=== PATIENT | female | born 1950 | race Caucasian/White ===

== ENCOUNTER → 2024-02-17 07:42 | Outpatient (REF) | payer OTHER, SELFPAY | LOC: RAD 07:42 | PROVIDERS: ATTENDING PHYSICIAN Surgery Vascular Surgery; FAMILY PHYSICIAN Internal Medicine | DX: I71.43 Infrarenal abdominal aortic aneurysm, without rupture (principal) | CPT/HCPCS: 76770 ==

== ENCOUNTER → 2024-05-08 12:19 | Outpatient (REF) | payer OTHER, SELFPAY | LOC: RAD 12:19 | PROVIDERS: ATTENDING PHYSICIAN Internal Medicine | DX: M54.12 Radiculopathy, cervical region (principal); M25.511 Pain in right shoulder | CPT/HCPCS: 72040 ==

== ENCOUNTER 2024-08-05 12:08 | Emergency (ER) | payer OTHER, SELFPAY ==
[2024-08-05 12:13] VITALS: BP 146/85
[2024-08-05 13:22] VITALS: BMI 35.5
[2024-08-05 13:30] LABS: % Basophils 0.7 % (0-2); % Eosinophils 0.8 % (0-6); % Immature Granulocytes 0.2 % (0-0.5); % Lymphocytes 31.6 % (20.5-51.1); % Monocytes 7.4 % (1.7-9.3); % Neutrophils 59.3 % (42.2-75.2); Absolute Basophils 0.1 10^3/uL (0-0.2); Absolute Eosinophils 0.1 10^3/uL (0-0.7); Absolute Lymphocytes 2.7 10^3/uL (1.2-3.4); Absolute Monocytes 0.6 10^3/uL (0.1-0.6); Hematocrit 35.1 % (37.0-47.0); Hemoglobin 11.9 g/dL (12.0-16.0); Mean Corp Hgb Conc. 33.9 g/dL (33.0-37.0); Mean Corpuscular Hgb 28.9 pg (27.0-31.0); Mean Corpuscular Volume 85.2 fL (81.0-99.0); Mean Platelet Volume 9.7 fL (7.4-10.4); Nucleated Red Blood Cells % 0 %; Platelet Count 305 10^3/uL (130-400); Red Blood Cell Count 4.12 10^6/uL (4.20-5.40); Red Cell Dist. Width 13.1 % (11.5-14.5); White Blood Cell Count 8.5 10^3/uL (4.8-10.8)
[2024-08-05 13:32] LABS: Urine Albumin Negative (Neg - Trace); Urine Bilirubin Negative (Negative); Urine Character Clear (Clear); Urine Color Yellow; Urine Glucose Negative (Negative); Urine Ketone Negative (Negative); Urine Leukocyte Negative (Negative); Urine Nitrite Negative (Negative); Urine Occult Blood Negative (Negative); Urine Specific Gravity 1.005 (<1.030); Urine Urobilinogen Negative (Neg - 1+)
[2024-08-05 13:46] LABS: ALT (SGPT) 14 U/L (0-35); AST (SGOT) 22 U/L (14-36); Alkaline Phosphatase 67 U/L (38-126); Blood Urea Nitrogen 15 mg/dl (7-17); Calcium 9.7 mg/dl (8.4-10.2); Carbon Dioxide 29 mmol/L (22-30); Chloride 103 mmol/L (98-107); Estimated Creatinine Clearance 105 ml/min; Glucose 94 mg/dl (70-99); Lipase 41 U/L (23-300); Potassium 5.1 mmol/L (3.5-5.1); Sodium 140 mmol/L (135-145); Total Bilirubin 0.4 mg/dl (0.2-1.3); Total Protein 6.4 g/dl (6.3-8.2); eGFR > 60.00
--- NOTE | 2024-08-05 13:56 | ED.GENMED ---
History of Present Illness
General
Chief Complaint: Abdominal Pain
Source: patient
Time Seen by Provider: 08/05/24 13:14
History of Present Illness
History of Present Illness:
74-year-old female with past medical history of hypertension, hyperlipidemia, wya-uhvqaew-xrgvwakqm diabetes, AAA (monitored with vascular surgery) presenting to the emergency department for evaluation after developing left-sided abdominal bloating
and discomfort yesterday with symptoms continuing into today and associated 'queasiness' and slightly diminished p.o. intake. Patient states that she had a very large bowel movement this morning and thought that it was related to the pain but
states pain did not get any better so decided to come to the ER for further evaluation. She does note the pain feels somewhat similar to when she had diverticulitis in the past. Patient notes that she is very careful in what she eats so as to not
cause flares. Patient has no other symptoms at this time.
Past History
Past History
ED Past Medical History: GERD, NIDDM, Psychiatric (Depression) and Other (Diverticulitis, Graves' disease)
ED Past Surgical History: Orthopedic (Left knee surgery) and Other (Lumpectomy of the left breast)
Social History
Tobacco: Non-smoker
Alcohol: None
Drug: None
Personal:
Living: with family
Employment: Employed
Family History
Family History: Other
Review of Systems
Review of Systems
All Other Systems: ROS reviewed and negative except as documented in HPI and ROS
Phy Exam
Physical Exam
Physical Exam:
GENERAL: Alert , in no apparent distress
EYE: clear conjunctiva b/l
HEAD: NCAT
ENT: mmm.
CARDIAC: Regular rate and rhythm .
LUNGS: Clear breath sounds bilaterally, no acute respiratory distress, no wheezes/rales/rhonchi
ABDOMEN: Soft, mild ttp LLQ, no r/g, no cvat
NEUROLOGICAL: Alert and oriented
SKIN: Warm and dry, skin intact.
MUSCULOSKELETAL: No edema, well perfused.
PSYCH: Normal and appropriate interaction.
Scores
Heart Failure Risk
Heart Failure Risk Score: Not Applicable
Heart Score for Chest Pain Patients
STEMI patient?: Not applicable
Withdrawal Assessment of Alcohol
Withdrawal Assessment Completed?: Not applicable
Course
Orders/Labs/Results
Orders:
Orders
08/05/24 13:17
IV Insert/Care/Rem.- Treatment PRN
08/05/24 13:20
Complete Blood Count/With Diff Urgent
Comprehensive Metabolic Panel Urgent
Lipase Urgent
Urinalysis Reflex To Culture Urgent
Date Specimen was Collected: 08/05/24
Time Specimen was Collected: 13:18
08/05/24 13:27
CT Abd/pelvis W Iv Cont Urgent
Comment:
Reason For Exam: LLQ pain, hx diverticulitis, known AAA
08/05/24 16:12
Amoxicillin 875 mg/Clav 125 mg [Augmentin 875 mg/125 mg] 1 tablet PO NOW STA
08/05/24 16:30
Ketorolac [Toradol] 15 mg .ROUTE .STK-MED ONE
08/05/24 16:31
Ketorolac [Toradol] 15 mg IM NOW STA
Abnormal Lab Results
08/05/24
13:20
RBC 4.12 L 10^6/uL
(4.20-5.40)
Hgb 11.9 L g/dL
(12.0-16.0)
Hct 35.1 L %
(37.0-47.0)
08/05/24 13:20
08/05/24 13:20
Vital Signs
Initial and Last Documented VS:
Initial Vital Signs
Temp Pulse Resp BP Pulse Ox
97.8 F 92 16 146/85 94
08/05/24 12:13 08/05/24 12:13 08/05/24 12:13 08/05/24 12:13 08/05/24 12:13
Last Documented Vital Signs
Temp Pulse Resp BP Pulse Ox
98.1 F 73 18 133/66 97
08/05/24 15:58 08/05/24 15:58 08/05/24 15:58 08/05/24 15:58 08/05/24 15:58
MDM/Problems Addressed
Differential Diagnosis Includes:
diverticulitis, colitis, UTI, renal/ureteral colic, AAA complication
MDM/Problems Addressed:
74-year-old female presenting to the emergency department for evaluation of left-sided abdominal pain that started yesterday, continued into today with symptoms reminiscent of previous diverticulitis episodes. Exam did reveal tenderness within the
left lower quadrant. Patient is otherwise in no acute distress and declining any medications. Will obtain lab work, CT imaging and reassess following. Patient in agreement with this plan.
*Radiology
Radiology exam reviewed: radiology read reviewed
*Pulse Oximetry
Patient hypoxic: no
*Critical Care Note
Total Time (30-74mins, 75-104mins- exclusive of procedures): Not Applicable
Data Reviewed
Review of Other/Old Records Reveals: Labs and Records
Source: patient and records
Patient Management
Escalation/DeEscalation of care consider admission/obs:
Patient CT shows acute uncomplicated diverticulitis of descending colon. She is relatively pain free, no fever, no leukocytosis. Agreeable to outpatient management. Aware of return precautions to the ER
ED Attending Note
-
Portions of this chart may have been created with voice recognition software.� Occasional wrong word or��sound alike� substitutions may have occurred due to the inherent limitations of voice recognition software.
Discharge Plan
Departure
Patient Disposition: Home (Routine Discharge)
Date of Disposition: 08/05/24
Time of Disposition: 16:13
Patient with high blood pressure during this ER visit?: No
Condition: Good
Covid-19: Not Applicable
Discharge Problem:
Diverticulitis
Instructions: Clear Liquid Diet, Diverticulitis (DC)
Prescriptions:
New
amoxicillin-pot clavulanate 875-125 mg tablet
1 tab PO BID Qty: 19 0RF
No Action
metformin 1,000 MG tablet
1,000 mg PO BID
duloxetine 60 MG capsule,delayed release(DR/EC)
90 mg PO DAILY
cholecalciferol (vitamin D3) 2,000 UNITS tablet
2,000 unit PO DAILY
lorazepam 0.5 MG tablet
0.5 mg PO PRN PRN (Reason: anxiety)
latanoprost 0.005 % Drops
1 drp OPHTHALMIC (EYE) QPM
buspirone 5 mg Tablet
5 mg PO BID
ibuprofen 400 mg Tablet
400 mg PO Q6H PRN (Reason: pain)
docusate sodium [Stool Softener] 100 mg Capsule
100 mg PO BID
Saline Nasal 0.65 % Aerosol,[place]
2 spray INTRANASAL Q4H PRN (Reason: nasal congestion)
Systane (PF) 0.4-0.3 % Dropperette
1 drp OPHTHALMIC (EYE) 6XD PRN (Reason: dry eye)
mecobalamin (vitamin B12) 500 mcg Tablet,Chewable
500 mcg PO DAILY
famotidine 20 MG tablet
20 mg PO PRN PRN (Reason: heart burn, indigestion)
polyethylene glycol 3350 [Miralax] 17 gram Powder In Packet
17 g PO DAILY
acetaminophen 650 mg Tablet Extended Release
650 mg PO Q8H PRN (Reason: pain)
gabapentin 100 mg Capsule
100 mg PO DAILY
lisinopril 2.5 mg Tablet
2.5 mg PO DAILY
rosuvastatin 5 mg Tablet
5 mg PO DAILY
clotrimazole-betamethasone 1-0.05 % Cream
1 applic TOPICAL BID
aspirin 81 mg Capsule
81 mg PO DAILY
multivitamin Tablet
1 tab PO DAILY
Referrals:
Yasmine Baker NP [Family Provider] -
Activity Restrictions/Additional Instructions:
Return to the emergency department immediately for any changes in/worening of your symptoms.
Interventions
Interventions:
*Risk Screen - Suicide Last Done: 08/05/24 16:45
*General Assessment Last Done: 08/05/24 16:45
*Neglect/Abuse Screening Last Done: 08/05/24 16:45
ED- Fall Risk Assessment Last Done: 08/05/24 16:45
*ED COVID-19 Vaccine History Last Done: 08/05/24 16:45
*Nursing Disposition Last Done: 08/05/24 16:45
LB-Saxfdw-Nqgboheijn Assessment Last Done: 08/05/24 13:23
Discharge Date and Time
Discharge Date/Time: 08/05/24 16:46
Print Language: PUERTO RICAN
[2024-08-05 15:58] VITALS: BP 133/66
[2024-08-05] MEDS: AUGMENTIN 875 MG/125 MG 1 TABLET PO (16:28)
[2024-08-05] MEDS: TORADOL 15 MG IM (16:33)
== END 2024-08-05 16:46 | disposition home or self-care (01) ==
LOC: EMR 12:08
PROVIDERS: EMERGENCY PHYSICIAN Student in an Organized Health Care Education/Training Program; FAMILY PHYSICIAN Internal Medicine
DX: K57.32 Diverticulitis of large intestine without perforation or abscess without bleeding (principal); I10 Essential (primary) hypertension; E78.5 Hyperlipidemia, unspecified; E11.9 Type 2 diabetes mellitus without complications
CPT/HCPCS: 99285; 96372; 74177; 80053; 81003; 83690; 85025; Q9967

== ENCOUNTER 2024-08-30 09:05 | Emergency (ER) | payer OTHER, SELFPAY ==
[2024-08-30 09:07] VITALS: BP 165/79
--- NOTE | 2024-08-30 09:39 | ED.GENMED ---
History of Present Illness
General
Chief Complaint: Abdominal Pain
Source: patient and records
Exam Limitations: none
Time Seen by Provider: 08/30/24 09:18
Nursing documentation reviewed up to this point in time: agreed with
History of Present Illness
History of Present Illness:
74-year-old female with past medical history as documented presents to the emergency room for evaluation of abdominal pain. Patient reports onset of symptoms yesterday and they have been constant since that time. She reports sharp pain to the left
lower quadrant radiates across lower abdomen. Associate with some bloating and nausea, no vomiting. No diarrhea, mildly constipated. No urinary symptoms. She reports low-grade fever at home 99.9 �F. She says similar symptoms in the past related
to diverticulitis.
Past History
Past History
ED Past Medical History: GERD, NIDDM, Psychiatric (Depression) and Other (Diverticulitis, Graves' disease)
ED Past Surgical History: Orthopedic (Left knee surgery) and Other (Lumpectomy of the left breast)
Social History
Tobacco: Non-smoker
Alcohol: None
Drug: None
Personal:
Living: with family
Employment: Employed
Family History
Family History: Other
Review of Systems
Review of Systems
All Other Systems: ROS reviewed and negative except as documented in HPI and ROS
Constitutional: Reports fever and fatigue; Denies chills
Respiratory: Denies trouble breathing
Cardiac: Denies chest pain
ABD/GI: Reports abdominal pain, nausea and constipated; Denies vomiting or diarrhea
: Denies dysuria, frequency or flank pain
Musculoskeletal: Denies neck pain
Neurological: Reports headache
Phy Exam
Physical Exam
Physical Exam:
General: Awake, alert, oriented x3; no acute distress
Head: Normocephalic, atraumatic
Eyes: Conjunctiva normal, sclera anicteric
Throat: Airway intact, handling secretions
Neck: Trachea midline, supple without meningismus
Lungs: Clear to auscultation bilaterally, no wheezing, rales, rhonchi
Heart: Regular rate and rhythm, no murmurs, gallops, or rubs
Abd: Soft, non distended, markedly tender left lower quadrant with voluntary guarding
Back: No CVA tenderness
Neuro: No gross deficits
Extremities: Warm well-perfused
Scores
Heart Failure Risk
Heart Failure Risk Score: Not Applicable
Heart Score for Chest Pain Patients
STEMI patient?: Not applicable
Withdrawal Assessment of Alcohol
Withdrawal Assessment Completed?: Not applicable
Course
Orders/Labs/Results
Orders:
Orders
08/30/24 09:18
CT Abd/pelvis W Iv Cont Urgent
Comment:
Reason For Exam: LLQ abd pain
08/30/24 09:29
Complete Blood Count/With Diff Urgent
Comprehensive Metabolic Panel Urgent
08/30/24 09:39
0.9% Sodium Chloride 500 ml [Nss] 500 ml IV BOLUS
Ketorolac [Toradol] 15 mg IV NOW STA
08/30/24 09:45
Urinalysis Reflex To Culture Urgent
Date Specimen was Collected: 08/30/24
Time Specimen was Collected: 09:42
08/30/24 11:02
Ciprofloxacin HCl [Cipro] 500 mg PO ONCE ONE
MetroNIDAZOLE [Flagyl] 500 mg PO NOW STA
Abnormal Lab Results
08/30/24
09:29
Hct 36.6 L %
(37.0-47.0)
Absolute Monos (auto) 0.8 H 10^3/uL
(0.1-0.6)
Monocytes % 9.6 H %
(1.7-9.3)
Creatinine 0.5 L mg/dL
(0.6-1.0)
Glucose 118 H mg/dl
(70-99)
08/30/24 09:29
08/30/24 09:29
Vital Signs
Initial and Last Documented VS:
Initial Vital Signs
Temp Pulse Resp BP Pulse Ox
36.7 C 95 18 165/79 97
08/30/24 09:07 08/30/24 09:07 08/30/24 09:07 08/30/24 09:07 08/30/24 09:07
Last Documented Vital Signs
Temp Pulse Resp BP Pulse Ox
36.7 C 95 18 165/79 97
08/30/24 09:07 08/30/24 09:07 08/30/24 09:07 08/30/24 09:07 08/30/24 09:07
MDM/Problems Addressed
Differential Diagnosis Includes:
Diverticulitis, nephrolithiasis, constipation
MDM/Problems Addressed:
74-year-old female presents to the emergency room for evaluation of left lower quadrant abdominal pain similar to prior episodes of diverticulitis. Hypertensive but otherwise normal vitals. Physical exam as above. Will place an IV check labs
including CBC and CMP. Check urinalysis. Provide fluids and pain control. Send for CT abdomen pelvis. Monitor closely reassess after the above.
Labs reviewed: CBC and CMP unremarkable. Urinalysis negative for infection. CT shows acute uncomplicated diverticulitis. Pain reasonably controlled and patient has no signs of sepsis. Reasonable to trial outpatient antibiotics. Patient is very
comfortable with this. Will follow-up with PCP. Spoke about return precautions all questions answered.
*Radiology
Radiology exam reviewed: radiology read reviewed
*Pulse Oximetry
Patient hypoxic: no
*Critical Care Note
Total Time (30-74mins, 75-104mins- exclusive of procedures): Not Applicable
Data Reviewed
Review of Other/Old Records Reveals: Labs and Records
Source: patient and records
ED Attending Note
-
Portions of this chart may have been created with voice recognition software.� Occasional wrong word or��sound alike� substitutions may have occurred due to the inherent limitations of voice recognition software.
Discharge Plan
Departure
Patient Disposition: Home (Routine Discharge)
Date of Disposition: 08/30/24
Time of Disposition: 11:04
Patient with high blood pressure during this ER visit?: Yes
Discharge Problem:
Acute diverticulitis
Instructions: Diverticulitis (DC)
Prescriptions:
New
ciprofloxacin HCl 500 mg tablet
500 mg PO BID Qty: 14 0RF
metronidazole 500 mg tablet
500 mg PO TID Qty: 21 0RF
No Action
metformin 1,000 MG tablet
1,000 mg PO BID
duloxetine 60 MG capsule,delayed release(DR/EC)
90 mg PO DAILY
cholecalciferol (vitamin D3) 2,000 UNITS tablet
2,000 unit PO DAILY
lorazepam 0.5 MG tablet
0.5 mg PO PRN PRN (Reason: anxiety)
latanoprost 0.005 % Drops
1 drp OPHTHALMIC (EYE) QPM
buspirone 5 mg Tablet
5 mg PO BID
ibuprofen 400 mg Tablet
400 mg PO Q6H PRN (Reason: pain)
docusate sodium [Stool Softener] 100 mg Capsule
100 mg PO BID
Saline Nasal 0.65 % Aerosol,[place]
2 spray INTRANASAL Q4H PRN (Reason: nasal congestion)
Systane (PF) 0.4-0.3 % Dropperette
1 drp OPHTHALMIC (EYE) 6XD PRN (Reason: dry eye)
mecobalamin (vitamin B12) 500 mcg Tablet,Chewable
500 mcg PO DAILY
famotidine 20 MG tablet
20 mg PO PRN PRN (Reason: heart burn, indigestion)
polyethylene glycol 3350 [Miralax] 17 gram Powder In Packet
17 g PO DAILY
acetaminophen 650 mg Tablet Extended Release
650 mg PO Q8H PRN (Reason: pain)
gabapentin 100 mg Capsule
100 mg PO DAILY
lisinopril 2.5 mg Tablet
2.5 mg PO DAILY
rosuvastatin 5 mg Tablet
5 mg PO DAILY
clotrimazole-betamethasone 1-0.05 % Cream
1 applic TOPICAL BID
aspirin 81 mg Capsule
81 mg PO DAILY
multivitamin Tablet
1 tab PO DAILY
amoxicillin-pot clavulanate 875-125 mg tablet
1 tab PO BID Qty: 19 0RF
Referrals:
Yasmine Baker NP [Family Provider] - Follow up in 5-7 days
Activity Restrictions/Additional Instructions:
Thank you for visiting the Emergency Department at [facility].
1. Please schedule a follow up appointment as directed. Call first thing tomorrow morning to make an appointment.
2. If indicated, please take your medications as instructed and indicated on discharge paperwork.
3. If any of your symptoms do not improve, or persist, or become more severe within 6-12 hours, please return to the emergency department for further care.
4. Please return to the emergency department if you develop a headache, neck pain/stiffness, fever greater than 100.4F, chest pain, shortness of breath, persistent nausea, vomiting, slurred speech, difficulty walking, numbness/tingling, weakness,
signs of infection or any other symptoms that are worrisome to you.
Please call [phone] if you have any questions.
Interventions
Interventions:
*Risk Screen - Suicide Last Done: 08/30/24 09:07
*General Assessment Last Done: 08/30/24 09:07
*Neglect/Abuse Screening Last Done: 08/30/24 09:07
*ED COVID-19 Vaccine History Last Done: 08/30/24 09:07
Discharge Date and Time
Print Language: CHILEAN
[2024-08-30 09:42] LABS: % Basophils 0.7 % (0-2); % Eosinophils 1.5 % (0-6); % Immature Granulocytes 0.4 % (0-0.5); % Lymphocytes 23.4 % (20.5-51.1); % Monocytes 9.6 % (1.7-9.3); % Neutrophils 64.4 % (42.2-75.2); Absolute Basophils 0.1 10^3/uL (0-0.2); Absolute Eosinophils 0.1 10^3/uL (0-0.7); Absolute Monocytes 0.8 10^3/uL (0.1-0.6); Absolute Neutrophils 5.5 10^3/uL (1.4-6.5); Hematocrit 36.6 % (37.0-47.0); Hemoglobin 12.4 g/dL (12.0-16.0); Mean Corp Hgb Conc. 33.9 g/dL (33.0-37.0); Mean Corpuscular Hgb 28.7 pg (27.0-31.0); Mean Corpuscular Volume 84.7 fL (81.0-99.0); Mean Platelet Volume 9.3 fL (7.4-10.4); Nucleated Red Blood Cells % 0 %; Platelet Count 341 10^3/uL (130-400); Red Blood Cell Count 4.32 10^6/uL (4.20-5.40); Red Cell Dist. Width 13.1 % (11.5-14.5); White Blood Cell Count 8.6 10^3/uL (4.8-10.8)
[2024-08-30] MEDS: NSS 500 IV (09:43)
[2024-08-30] MEDS: TORADOL 15 MG IV (09:43)
[2024-08-30 10:06] LABS: Urine Albumin Negative (Neg - Trace); Urine Bilirubin Negative (Negative); Urine Character Clear (Clear); Urine Color Yellow; Urine Glucose Negative (Negative); Urine Ketone Negative (Negative); Urine Leukocyte Negative (Negative); Urine Nitrite Negative (Negative); Urine Occult Blood Negative (Negative); Urine Specific Gravity 1.015 (<1.030); Urine Urobilinogen Negative (Neg - 1+); Urine pH 6.5 (5.0-9.0)
[2024-08-30 10:07] LABS: ALT (SGPT) 18 U/L (0-35); AST (SGOT) 19 U/L (14-36); Alkaline Phosphatase 87 U/L (38-126); Blood Urea Nitrogen 12 mg/dl (7-17); Calcium 9.5 mg/dl (8.4-10.2); Carbon Dioxide 25 mmol/L (22-30); Chloride 104 mmol/L (98-107); Glucose 118 mg/dl (70-99); Potassium 4.5 mmol/L (3.5-5.1); Sodium 140 mmol/L (135-145); Total Bilirubin 0.3 mg/dl (0.2-1.3); Total Protein 6.5 g/dl (6.3-8.2); eGFR > 60.00
[2024-08-30] MEDS: CIPRO 500 MG PO (11:22)
[2024-08-30] MEDS: FLAGYL 500 MG PO (11:22)
[2024-08-30 11:30] VITALS: BP 112/86
== END 2024-08-30 11:31 | disposition home or self-care (01) ==
LOC: EMR 09:05
PROVIDERS: EMERGENCY PHYSICIAN Emergency Medicine; FAMILY PHYSICIAN Internal Medicine
DX: K57.32 Diverticulitis of large intestine without perforation or abscess without bleeding (principal); R03.0 Elevated blood-pressure reading, without diagnosis of hypertension
CPT/HCPCS: 99285; 96374; 96361; 74177; 80053; 81003; 85025; Q9967

== ENCOUNTER → 2024-10-11 08:37 | Outpatient (REF) | payer OTHER, SELFPAY | LOC: HWWDC 08:37 | PROVIDERS: ATTENDING PHYSICIAN Internal Medicine | DX: Z78.0 Asymptomatic menopausal state (principal); Z12.31 Encounter for screening mammogram for malignant neoplasm of breast | CPT/HCPCS: 77063; 77067; 77080 ==

== ENCOUNTER → 2025-02-28 09:05 | Outpatient (REF) | payer OTHER, SELFPAY | LOC: RAD 09:05 | PROVIDERS: ATTENDING PHYSICIAN Surgery Vascular Surgery; FAMILY PHYSICIAN Internal Medicine | DX: I71.43 Infrarenal abdominal aortic aneurysm, without rupture (principal) | CPT/HCPCS: 76770 ==

== ENCOUNTER 2025-05-15 12:47 | Emergency (ER) | payer OTHER, SELFPAY ==
[2025-05-15 12:47] VITALS: BMI 37.7
[2025-05-15 12:49] VITALS: BP 138/97
[2025-05-15 15:18] VITALS: BP 133/61
[2025-05-15 15:26] LABS: % Basophils 0.7 % (0-2); % Eosinophils 1.3 % (0-6); % Immature Granulocytes 0.4 % (0-0.5); % Lymphocytes 32.8 % (20.5-51.1); % Monocytes 6.6 % (1.7-9.3); % Neutrophils 58.2 % (42.2-75.2); Absolute Basophils 0.1 10^3/uL (0-0.2); Absolute Eosinophils 0.1 10^3/uL (0-0.7); Absolute Lymphocytes 2.8 10^3/uL (1.2-3.4); Absolute Monocytes 0.6 10^3/uL (0.1-0.6); Absolute Neutrophils 4.9 10^3/uL (1.4-6.5); Hematocrit 36.5 % (37.0-47.0); Hemoglobin 12.1 g/dL (12.0-16.0); Mean Corp Hgb Conc. 33.2 g/dL (33.0-37.0); Mean Corpuscular Hgb 28.9 pg (27.0-31.0); Mean Corpuscular Volume 87.3 fL (81.0-99.0); Mean Platelet Volume 9.3 fL (7.4-10.4); Nucleated Red Blood Cells % 0 %; Platelet Count 304 10^3/uL (130-400); Red Blood Cell Count 4.18 10^6/uL (4.20-5.40); Red Cell Dist. Width 13.1 % (11.5-14.5); White Blood Cell Count 8.5 10^3/uL (4.8-10.8)
[2025-05-15 15:42] LABS: ALT (SGPT) 17 U/L (0-35); AST (SGOT) 18 U/L (14-36); Alkaline Phosphatase 83 U/L (38-126); Blood Urea Nitrogen 13 mg/dl (7-17); Calcium 9.4 mg/dl (8.4-10.2); Carbon Dioxide 28 mmol/L (22-30); Chloride 106 mmol/L (98-107); Estimated Creatinine Clearance 103 ml/min; Glucose 94 mg/dl (70-99); Potassium 4.3 mmol/L (3.5-5.1); Sodium 138 mmol/L (135-145); Total Bilirubin 0.4 mg/dl (0.2-1.3); Total Protein 6.6 g/dl (6.3-8.2); eGFR > 60.00
--- NOTE | 2025-05-15 16:28 | ED.GENMED ---
History of Present Illness
<Ariel Cline PA-C - Last Filed: 05/16/25 12:53>
General
Chief Complaint: Back Pain
Time Seen by Provider: 05/15/25 14:49
History of Present Illness
History of Present Illness:
75-year-old female with history of AAA status post endovascular repair, hypertension and hyperlipidemia presents to the emergency department for evaluation of right-sided flank discomfort as well as diffuse abdominal pain and left groin pain. She
states the symptoms are comparable to those that resulted in her AAA diagnosis several years ago. Symptoms ongoing for the past 2 weeks. Was encouraged to come to the ED by her vascular surgeon
Past History
<Ariel Cline PA-C - Last Filed: 05/16/25 12:53>
Past History
ED Past Medical History: GERD, NIDDM, Psychiatric (Depression) and Other (Diverticulitis, Graves' disease)
ED Past Surgical History: Orthopedic (Left knee surgery) and Other (Lumpectomy of the left breast)
Social History
Tobacco: Non-smoker
Alcohol: None
Drug: None
Personal:
Living: with family
Employment: Employed
Family History
Family History: Other
Review of Systems
<Ariel Cline PA-C - Last Filed: 05/16/25 12:53>
Review of Systems
Allergies reviewed?: Yes
All Other Systems: ROS reviewed and negative except as documented in HPI and ROS
Phy Exam
<Ariel Cline PA-C - Last Filed: 05/16/25 12:53>
Physical Exam
Physical Exam:
GEN: Well appearing, NAD, WDWN
HEENT: Oral mucosa moist, no scleral icterus
Cardiac: Regular rate
Lung: No respiratory distress, no tachypnea
Abdomen: Soft, grossly nontender to palpation
MSK: No gross deformity or injuries
Skin: Good color, no pallor or jaundice, no rashes
Neuro: AO x3, moves all extremities freely
Psych: Calm, cooperative
Course
<Ariel Cline PA-C - Last Filed: 05/16/25 12:53>
Orders/Labs/Results
Orders:
Orders
05/15/25 15:07
CT Angio Abd/Pelvis w/wo IV [CT Abd/pelvis Angio W/wo Iv] Urgent
Comment: arterial and venous phases
Reason For Exam: abd/flank pain, hx of AAA, eval for endoleak
05/15/25 15:15
Complete Blood Count/With Diff Urgent
Comprehensive Metabolic Panel Urgent
05/15/25 17:09
Urinalysis Reflex To Culture Urgent
Date Specimen was Collected: 05/15/25
Time Specimen was Collected: 17:05
Urine Microscopic Reflex Cult Urgent
Abnormal Lab Results
05/15/25 05/15/25
15:15 17:09
RBC 4.18 L 10^6/uL
(4.20-5.40)
Hct 36.5 L %
(37.0-47.0)
Urine Bacteria (Reflex) Few A
(Negative)
Urine Albumin (Reflex) 1+ A
(Neg - Trace)
05/15/25 15:15
05/15/25 15:15
Vital Signs
Initial and Last Documented VS:
Initial Vital Signs
Temp Pulse Resp BP Pulse Ox
98.2 F 89 20 138/97 99
05/15/25 12:49 05/15/25 12:49 05/15/25 12:49 05/15/25 12:49 05/15/25 12:49
Last Documented Vital Signs
Temp Pulse Resp BP Pulse Ox
98.2 F 78 18 133/61 99
05/15/25 12:49 05/15/25 17:29 05/15/25 17:29 05/15/25 15:18 05/15/25 17:29
<Jim Charles PA-C - Last Filed: 05/15/25 21:03>
Orders/Labs/Results
Orders:
Orders
05/15/25 15:07
CT Angio Abd/Pelvis w/wo IV [CT Abd/pelvis Angio W/wo Iv] Urgent
Comment: arterial and venous phases
Reason For Exam: abd/flank pain, hx of AAA, eval for endoleak
05/15/25 15:15
Complete Blood Count/With Diff Urgent
Comprehensive Metabolic Panel Urgent
05/15/25 17:09
Urinalysis Reflex To Culture Urgent
Date Specimen was Collected: 05/15/25
Time Specimen was Collected: 17:05
Urine Microscopic Reflex Cult Urgent
Abnormal Lab Results
05/15/25 05/15/25
15:15 17:09
RBC 4.18 L 10^6/uL
(4.20-5.40)
Hct 36.5 L %
(37.0-47.0)
Urine Bacteria (Reflex) Few A
(Negative)
Urine Albumin (Reflex) 1+ A
(Neg - Trace)
05/15/25 15:15
05/15/25 15:15
Vital Signs
Initial and Last Documented VS:
Initial Vital Signs
Temp Pulse Resp BP Pulse Ox
98.2 F 89 20 138/97 99
05/15/25 12:49 05/15/25 12:49 05/15/25 12:49 05/15/25 12:49 05/15/25 12:49
Last Documented Vital Signs
Temp Pulse Resp BP Pulse Ox
98.2 F 78 18 133/61 99
05/15/25 12:49 05/15/25 17:29 05/15/25 17:29 05/15/25 15:18 05/15/25 17:29
<Ariel Cline PA-C - Last Filed: 05/16/25 12:53>
MDM/Problems Addressed
MDM/Problems Addressed:
75-year-old female presents due to widespread abdominal and back pain that is comparable to her prior abdominal aortic aneurysm diagnosis. She is clinically stable and has had symptoms ongoing for the past 2 weeks. Labs are unremarkable. Awaiting
imaging
<Ariel Cline PA-C - Last Filed: 05/16/25 12:53>
*Pulse Oximetry
SaO2: 98
Oxygen Mode of Delivery: Room air
<Jim Charles PA-C - Last Filed: 05/15/25 21:03>
*Critical Care Note
Total Time (30-74mins, 75-104mins- exclusive of procedures): Not Applicable
<Jim Charles PA-C - Last Filed: 05/15/25 21:03>
Patient Management
Escalation/DeEscalation of care consider admission/obs:
5 PM: Patient received in signout pending CT scan results. CT without any acute pathologies. Abdominal aneurysm decreased in size from 5 cm to 3.9 cm. Patient overall well-appearing, pain under control and she feels comfortable being discharged
home. Aware of return precautions to the ER. Stable for discharge.
ED Attending Note
<Ariel Cline PA-C - Last Filed: 05/16/25 12:53>
-
Portions of this chart may have been created with voice recognition software.� Occasional wrong word or��sound alike� substitutions may have occurred due to the inherent limitations of voice recognition software.
Discharge Plan
Departure
Patient Disposition: Home (Routine Discharge)
Date of Disposition: 05/15/25
Time of Disposition: 17:29
Patient with high blood pressure during this ER visit?: No
Discharge Problem:
Bilateral flank pain
Instructions: Flank pain - ED discharge instructions
Prescriptions:
No Action
metformin 1,000 MG tablet
1,000 mg PO BID
duloxetine 60 MG capsule,delayed release(DR/EC)
90 mg PO DAILY
cholecalciferol (vitamin D3) 2,000 UNITS tablet
2,000 unit PO DAILY
lorazepam 0.5 MG tablet
0.5 mg PO PRN PRN (Reason: anxiety)
latanoprost 0.005 % Drops
1 drp OPHTHALMIC (EYE) QPM
buspirone 5 mg Tablet
5 mg PO BID
ibuprofen 400 mg Tablet
400 mg PO Q6H PRN (Reason: pain)
docusate sodium [Stool Softener] 100 mg Capsule
100 mg PO BID
Saline Nasal 0.65 % Aerosol,[place]
2 spray INTRANASAL Q4H PRN (Reason: nasal congestion)
Systane (PF) 0.4-0.3 % [place]
1 drp OPHTHALMIC (EYE) 6XD PRN (Reason: dry eye)
mecobalamin (vitamin B12) 500 mcg Tablet,Chewable
500 mcg PO DAILY
famotidine 20 MG tablet
20 mg PO PRN PRN (Reason: heart burn, indigestion)
polyethylene glycol 3350 [Miralax] 17 gram Powder In Packet
17 g PO DAILY
acetaminophen 650 mg Tablet Extended Release
650 mg PO Q8H PRN (Reason: pain)
gabapentin 100 mg Capsule
100 mg PO DAILY
lisinopril 2.5 mg Tablet
2.5 mg PO DAILY
rosuvastatin 5 mg Tablet
5 mg PO DAILY
clotrimazole-betamethasone 1-0.05 % Cream
1 applic TOPICAL BID
aspirin 81 mg Capsule
81 mg PO DAILY
multivitamin Tablet
1 tab PO DAILY
amoxicillin-pot clavulanate 875-125 mg tablet
1 tab PO BID Qty: 19 0RF
ciprofloxacin HCl 500 mg tablet
500 mg PO BID Qty: 14 0RF
metronidazole 500 mg tablet
500 mg PO TID Qty: 21 0RF
Referrals:
Yasmine Baker NP [Family Provider, Internal Medicine]
Interventions
Interventions:
*Risk Screen - Suicide Last Done: 05/15/25 17:43
*General Assessment Last Done: 05/15/25 12:49
*Neglect/Abuse Screening Last Done: 05/15/25 15:19
*ED- Fall Risk Assessment Last Done: 05/15/25 17:43
*ED COVID-19 Vaccine History Last Done: 05/15/25 15:19
*Nursing Disposition Last Done: 05/15/25 17:43
ED-Musculoskeletal Assessment Last Done: 05/15/25 15:30
Discharge Date and Time
Discharge Date/Time: 05/15/25 17:43
Print Language: WELSH
[2025-05-15 17:19] LABS: Urine Albumin 1+ (Neg - Trace); Urine Bilirubin Negative (Negative); Urine Character Clear (Clear); Urine Color Yellow; Urine Glucose Negative (Negative); Urine Ketone Negative (Negative); Urine Leukocyte Negative (Negative); Urine Nitrite Negative (Negative); Urine Occult Blood Negative (Negative); Urine Urobilinogen Negative (Neg - 1+)
[2025-05-15 17:29] LABS: Urine Bacteria Few (Negative); Urine Squamous Cell 0-2 /LPF (Few); Urine White Cell 0-2 /HPF (0-5)
[2025-05-15 17:30] LABS: Urine Red Blood Cell 0-2 /HPF (0-2)
== END 2025-05-15 17:43 | disposition home or self-care (01) ==
LOC: EMR 12:47
PROVIDERS: Physician Assistant; EMERGENCY PHYSICIAN Emergency Medicine; FAMILY PHYSICIAN Internal Medicine
DX: R10.84 Generalized abdominal pain (principal); E11.9 Type 2 diabetes mellitus without complications; E78.5 Hyperlipidemia, unspecified; I10 Essential (primary) hypertension; I71.40 Abdominal aortic aneurysm, without rupture, unspecified
CPT/HCPCS: 99284; 74174; 80053; 81003; 81015; 85025; Q9967

== ENCOUNTER 2025-06-01 17:05 | Emergency (ER) | payer OTHER, SELFPAY ==
[2025-06-01 17:09] VITALS: BP 160/95
[2025-06-01 17:28] LABS: Hematocrit 38.7 % (37.0-47.0); Hemoglobin 13.0 g/dL (12.0-16.0); Mean Corp Hgb Conc. 33.6 g/dL (33.0-37.0); Mean Corpuscular Volume 86.0 fL (81.0-99.0); Nucleated Red Blood Cells % 0 %; Platelet Count 337 10^3/uL (130-400); Red Cell Dist. Width 12.9 % (11.5-14.5)
[2025-06-01 17:41] LABS: ALT (SGPT) 19 U/L (0-35); AST (SGOT) 20 U/L (14-36); Albumin 4.2 g/dl (3.5-5.0); Alkaline Phosphatase 83 U/L (38-126); Blood Urea Nitrogen 15 mg/dl (7-17); Calcium 9.6 mg/dl (8.4-10.2); Carbon Dioxide 26 mmol/L (22-30); Chloride 108 mmol/L (98-107); Glucose 122 mg/dl (70-99); Lipase 97 U/L (23-300); Potassium 4.3 mmol/L (3.5-5.1); Sodium 138 mmol/L (135-145); Total Protein 7.0 g/dl (6.3-8.2); eGFR > 60.00
--- NOTE | 2025-06-01 20:17 | ED.GENMED ---
History of Present Illness
General
Chief Complaint: Abdominal Pain
Time Seen by Provider: 06/01/25 18:51
History of Present Illness
History of Present Illness:
75-year-old female with history of prediabetes, hypertension, hyperlipidemia, diverticulosis, history of cholecystectomy presenting for abdominal discomfort. Patient reports symptoms for the past several days. She has been having about 4 episodes
of diarrhea a day, notes that her stools are still formed, however soft. She reports generalized cramping to the abdomen. She went to her doctor today, had labs, stool studies, CT ordered for her and was told that everything were not improving or
worsening to come to the hospital. Patient went home and felt like her symptoms were not improving so she came to the hospital. She does note that her is in a nursing facility and currently has C. difficile, has had it for the past 7 days.
Denies chest pain or difficulty breathing. Denies fever. Denies additional acute medical complaints
Past History
Past History
ED Past Medical History: GERD, NIDDM, Psychiatric (Depression) and Other (Diverticulitis, Graves' disease)
ED Past Surgical History: Orthopedic (Left knee surgery) and Other (Lumpectomy of the left breast)
Social History
Tobacco: Non-smoker
Alcohol: None
Drug: None
Personal:
Living: with family
Employment: Employed
Family History
Family History: Other
Phy Exam
Physical Exam
Physical Exam:
General: Well-appearing, no clinical signs of dehydration, nontoxic and in no acute distress
HEENT: protecting airway
Neck: appears supple
CV: Normal heart rate, regular rhythm
Resp: No accessory muscle use, no increased work of breathing
Abd: Soft and non-distended, no focal tenderness
Extremities: No deformities, no swelling, no erythema
Neuro: alert, no focal neurologic deficit
: deferred
Rectal: deferred
Psych: Normal affect
Skin: Intact
Course
Orders/Labs/Results
Orders:
Orders
06/01/25 17:16
Complete Blood Count/With Diff Urgent
Comprehensive Metabolic Panel Urgent
Lipase Urgent
STOOL [C difficile Antigen & Toxins] Urgent
DREW Source: Feces/Stool
Specimen Description:
Date Specimen was Collected: 06/01/25
Time Specimen was Collected: 17:13
06/01/25 19:55
CT Abd/pelvis W Iv Cont Urgent
Comment:
Reason For Exam: diarrhea and cramping
0.9% Sodium Chloride 1000 ml [Nss] 1,000 ml IV BOLUS
Abnormal Lab Results
06/01/25
17:16
Chloride 108 H mmol/L
(98-107)
Creatinine 0.5 L mg/dL
(0.6-1.0)
Glucose 122 H mg/dl
(70-99)
06/01/25 17:16
06/01/25 17:16
Vital Signs
Initial and Last Documented VS:
Initial Vital Signs
Temp Pulse Resp BP Pulse Ox
98.4 F 93 18 160/95 94
06/01/25 17:09 06/01/25 17:09 06/01/25 17:09 06/01/25 17:09 06/01/25 17:09
Last Documented Vital Signs
Temp Pulse Resp BP Pulse Ox
98.4 F 70 16 135/66 99
06/01/25 17:09 06/01/25 23:15 06/01/25 23:15 06/01/25 23:15 06/01/25 23:15
MDM/Problems Addressed
MDM/Problems Addressed:
75-year-old female presenting for generalized abdominal discomfort and diarrhea for the past few days. Vital signs on arrival are significant for mild hypertension.
On exam, patient is resting comfortably, nontoxic. Patient symptoms sound consistent with colitis, notes positive exposure to C. difficile. However patient notes that her stool is still formed. Abdominal exam is relatively benign, no focal
reproducible tenderness. Lower suspicion for serious intra-abdominal process or infection. Given patient's age, will screen with laboratory analysis and CT imaging.
23:30 -labs unremarkable and CT negative for acute process. Patient remained stable. C. difficile pending, however overall low suspicion, no struggling while in the ER. Feel stable for discharge with continued outpatient supportive therapy.
Return precautions discussed and patient verbalized understanding
*Pulse Oximetry
SaO2: 94
Oxygen Mode of Delivery: Room air
Patient hypoxic: no
*Critical Care Note
Total Time (30-74mins, 75-104mins- exclusive of procedures): Not Applicable
ED Attending Note
-
Portions of this chart may have been created with voice recognition software.� Occasional wrong word or��sound alike� substitutions may have occurred due to the inherent limitations of voice recognition software.
Discharge Plan
Departure
Patient Disposition: Home (Routine Discharge)
Date of Disposition: 06/01/25
Time of Disposition: 23:35
Patient with high blood pressure during this ER visit?: No
Condition: Good
Discharge Problem:
Colitis
Instructions: Colitis - Discharge instructions
Prescriptions:
No Action
metformin 1,000 MG tablet
1,000 mg PO BID
duloxetine 60 MG capsule,delayed release(DR/EC)
90 mg PO DAILY
cholecalciferol (vitamin D3) 2,000 UNITS tablet
2,000 unit PO DAILY
lorazepam 0.5 MG tablet
0.5 mg PO PRN PRN (Reason: anxiety)
latanoprost 0.005 % Drops
1 drp OPHTHALMIC (EYE) QPM
buspirone 5 mg Tablet
5 mg PO BID
ibuprofen 400 mg Tablet
400 mg PO Q6H PRN (Reason: pain)
docusate sodium [Stool Softener] 100 mg Capsule
100 mg PO BID
Saline Nasal 0.65 % Aerosol,[place]
2 spray INTRANASAL Q4H PRN (Reason: nasal congestion)
Systane (PF) 0.4-0.3 % Dropperette
1 drp OPHTHALMIC (EYE) 6XD PRN (Reason: dry eye)
mecobalamin (vitamin B12) 500 mcg Tablet,Chewable
500 mcg PO DAILY
famotidine 20 MG tablet
20 mg PO PRN PRN (Reason: heart burn, indigestion)
polyethylene glycol 3350 [Miralax] 17 gram Powder In Packet
17 g PO DAILY
acetaminophen 650 mg Tablet Extended Release
650 mg PO Q8H PRN (Reason: pain)
gabapentin 100 mg Capsule
100 mg PO DAILY
lisinopril 2.5 mg Tablet
2.5 mg PO DAILY
rosuvastatin 5 mg Tablet
5 mg PO DAILY
clotrimazole-betamethasone 1-0.05 % Cream
1 applic TOPICAL BID
aspirin 81 mg Capsule
81 mg PO DAILY
multivitamin Tablet
1 tab PO DAILY
amoxicillin-pot clavulanate 875-125 mg tablet
1 tab PO BID Qty: 19 0RF
ciprofloxacin HCl 500 mg tablet
500 mg PO BID Qty: 14 0RF
metronidazole 500 mg tablet
500 mg PO TID Qty: 21 0RF
Referrals:
Yasmine Baker NP [Family Provider, Internal Medicine]
Activity Restrictions/Additional Instructions:
You were seen in the emergency department for diarrhea and abdominal discomfort.
You were found to have reassuring laboratory analysis and CT imaging of your abdomen. Your C. difficile sample is still pending. You will be called if the results are positive.
Please follow-up closely with your primary care physician.
Return to the emergency department for any worsening of your symptoms, or any development of chest pain, difficulty breathing, abdominal pain with persistent vomiting and inability to tolerate food or liquid by mouth (concern for dehydration),
weakness, headache or confusion, fever greater than 100.4, or any additional symptoms that are concerning to you.
Thank you for choosing [facility].
Interventions
Interventions:
*Risk Screen - Suicide Last Done: 06/01/25 17:11
*General Assessment Last Done: 06/01/25 20:25
*Neglect/Abuse Screening Last Done: 06/01/25 20:25
*ED- Fall Risk Assessment Last Done: 06/01/25 20:25
*ED COVID-19 Vaccine History Last Done: 06/01/25 20:25
HB-Kszdak-Objjaxlznr Assessment Last Done: 06/01/25 20:25
Discharge Date and Time
Print Language: ALBANIAN
[2025-06-01 20:25] VITALS: BP 136/56; BMI 36.2
[2025-06-01] MEDS: NSS 1000 IV (20:42)
[2025-06-01 23:15] VITALS: BP 135/66
== END 2025-06-02 00:13 | disposition home or self-care (01) ==
LOC: EMR 17:05
PROVIDERS: EMERGENCY PHYSICIAN Student in an Organized Health Care Education/Training Program; FAMILY PHYSICIAN Internal Medicine
DX: K52.9 Noninfective gastroenteritis and colitis, unspecified (principal); E11.9 Type 2 diabetes mellitus without complications; I10 Essential (primary) hypertension; E78.5 Hyperlipidemia, unspecified; Z90.49 Acquired absence of other specified parts of digestive tract
CPT/HCPCS: 99284; 96360; 74177; 80053; 83690; 85025; 87324; 87449; Q9967

== ENCOUNTER → 2025-10-05 10:44 | Outpatient (REF) | payer OTHER, SELFPAY | LOC: RAD 10:44 | PROVIDERS: ATTENDING PHYSICIAN Nurse Practitioner Adult Health; FAMILY PHYSICIAN Internal Medicine | DX: M54.42 Lumbago with sciatica, left side (principal); Z91.81 History of falling | CPT/HCPCS: 72110 ==

== ENCOUNTER → 2025-10-31 13:11 | Outpatient (REF) | payer OTHER, SELFPAY | LOC: RAD 13:11 | PROVIDERS: ATTENDING PHYSICIAN Internal Medicine Endocrinology, Diabetes & Metabolism; FAMILY PHYSICIAN Internal Medicine | DX: E04.2 Nontoxic multinodular goiter (principal) | CPT/HCPCS: 76536 ==

== ENCOUNTER → 2025-11-06 19:29 | Outpatient (REF) | payer OTHER, SELFPAY | LOC: PAVMRI 19:29 | PROVIDERS: ATTENDING PHYSICIAN Student in an Organized Health Care Education/Training Program; FAMILY PHYSICIAN Internal Medicine | DX: M54.16 Radiculopathy, lumbar region (principal); M25.552 Pain in left hip | CPT/HCPCS: 72148 ==

== ENCOUNTER → 2025-11-24 12:06 | Outpatient (REF) | payer OTHER, SELFPAY | LOC: PAVMRI 12:06 | PROVIDERS: ATTENDING PHYSICIAN Student in an Organized Health Care Education/Training Program; FAMILY PHYSICIAN Internal Medicine | DX: M25.552 Pain in left hip (principal) | CPT/HCPCS: 73721 ==